=== PATIENT | male | born 1975 | race African-American/Black ===

== ENCOUNTER 2017-11-24 22:04 | Emergency (ER) | payer OTHER ==
[~2017-11-24] VITALS: Ht 175.3 cm; Wt 83.9 kg
[2017-11-24] MEDS ORDERED: MOBIC15 MG PO (23:01)
[2017-11-24] MEDS ORDERED: VALIUM5 MG PO (23:01)
[2017-11-24 23:18] VITALS: BP 135/95
== END 2017-11-24 23:19 | disposition home or self-care (01) ==
LOC: ER 22:04
DX: S16.1XXA Strain of muscle, fascia and tendon at neck level, initial encounter (principal); S29.012A Strain of muscle and tendon of back wall of thorax, initial encounter; R51 Headache; R63.0 Anorexia; V89.2XXA Person injured in unspecified motor-vehicle accident, traffic, initial encounter; Y92.89 Other specified places as the place of occurrence of the external cause; Y93.89 Activity, other specified; Y99.8 Other external cause status